=== PATIENT | female | born 1970 | race Caucasian/White ===

== ENCOUNTER 2021-11-22 12:39 | Emergency (ER) | payer MEDICARE, OTHER ==
--- NOTE | 2021-11-22 14:07 | RAD REPORT ---
EXAM DESCRIPTION: RAD - Knee Right 3 View - 11/22/2021 1:45 pm CLINICAL HISTORY: PAIN COMPARISON: No comparisons FINDINGS: No acute fracture. No malalignment. No significant focal degenerative changes. IMPRESSION: No acute osseous abnormality involving the right knee.
--- NOTE | 2021-11-22 14:10 | ER ---
Nurse's Notes [facility] Name: Isamar Morgan Age: 51 yrs Sex: Female : 1970 Arrival Date: 11/22/2021 Time: 12:41 Bed 19 Private MD: Diagnosis: Other specified arthritis, right knee-and right knee haskins cyst Presentation: 11/22 12:45 Chief complaint: Patient states: noticed a 'lump' behind Right knee this morning. vg1 States has hx of Right knee pain, denies any injuries or sx to knee. Coronavirus screen: Vaccine status: Patient reports being unvaccinated. Client denies travel out of the [place] in the last 14 days. Ebola Screen: Patient negative for fever greater than or equal to 101.5 degrees Fahrenheit, and additional compatible Ebola Virus Disease symptoms. Initial Sepsis Screen: Does the patient meet any 2 criteria? No. Patient's initial sepsis screen is negative. Does the patient have a suspected source of infection? No. Patient's initial sepsis screen is negative. Risk Assessment: Do you want to hurt yourself or someone else? Patient reports no desire to harm self or others. Onset of symptoms was November 22, 2021. 12:45 Method Of Arrival: Ambulatory vg1 12:45 Acuity: JENELLE 4 vg1 Triage Assessment: 12:47 General: Appears in no apparent distress. Behavior is calm, cooperative. Pain: vg1 Complains of pain in posterior aspect of right knee Pain currently is 4 out of 10 on a pain scale. 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 - Social history:: Smoking status: Patient reports the use of cigarette tobacco products, smokes one pack cigarettes per day. - Family history:: not pertinent. Screenin:11 Abuse screen: Denies threats or abuse. Denies injuries from another. Nutritional cb5 screening: No deficits noted. Tuberculosis screening: No symptoms or risk factors identified. 13:11 Fall Risk None identified. cb5 Assessment: 13:00 General: Appears in no apparent distress. distressed, comfortable, Behavior is calm, cb5 cooperative, appropriate for age. Pain: Complains of pain in right leg and posterior aspect of right knee Pain currently is 3 out of 10 on a pain scale. Neuro: No deficits noted. Level of Consciousness is awake, alert, obeys commands. Cardiovascular: No deficits noted. Respiratory: No deficits noted. GI: No deficits noted. : No deficits noted. EENT: No deficits noted. Derm: laceration to right hand. Musculoskeletal: No deficits noted. 14:27 Reassessment: No changes from previously documented assessment. cb5 Vital Signs: 12:45 BP 138 / 88; Pulse 71; Resp 16; Temp 97.9; Pulse Ox 100% ; Weight 81.65 kg; Height 5 vg1 ft. 5 in. (165.10 cm); Pain 4/10; 14:35 BP 133 / 74; Pulse 70; Resp 16; Temp 98.6; Pulse Ox 100% ; Pain 0/10; cb5 12:45 Body Mass Index 29.95 (81.65 kg, 165.10 cm) vg1 ED Course: 12:41 Patient arrived in ED. as 12:47 Triage completed. vg1 12:47 Arm band placed on. vg1 12:50 Rosaline Peters MD is Attending Physician. ma2 13:03 Kaitlynn Feliciano, RN is Primary Nurse. cb5 13:11 Call light in reach. Side rails up X 1. Side rails up X2. cb5 13:45 Knee Right 3 View XRAY In Process Unspecified. EDMS 14:53 No provider procedures requiring assistance completed. cb5 Administered Medications: No medications were administered Outcome: 14:09 Discharge ordered by . ma2 14:53 Discharged to home ambulatory. cb5 14:53 Condition: good 14:53 Discharge instructions given to patient. 14:54 Patient left the ED. cb5 Signatures: Dispatcher [employer] EDMS Cherry Guillory Mohammad, MD MD ma2 Susan Aburto, RN RN vg1 Kaitlynn Feliciano, RN RN cb5
--- NOTE | 2021-11-22 14:10 | EDPHYS ---
Physician Documentation [facility] Name: Isamar Morgan Age: 51 yrs Sex: Female : 1970 Arrival Date: 11/22/2021 Time: 12:41 Bed 19 Private MD: ED Physician Rosaline Peters HPI: 11/22 13:22 This 51 yrs old Female presents to ER via Ambulatory with complaints of Leg Pain - lump ma2 above calf. 13:22 51-year-old healthy female, presents with a lump behind right knee that is been ma2 constant for 2 days, painless. No trauma. Of note she had right knee pain and arthritis for a week. There is no right leg swelling, never had DVT before. No pain anywhere else. No fever. 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 - Social history:: Smoking status: Patient reports the use of cigarette tobacco products, smokes one pack cigarettes per day. - Family history:: not pertinent. ROS: 13:22 Constitutional: Negative for fever, chills, and weight loss. ma2 13:22 All other systems are negative. Exam: 13:22 Constitutional: This is a well developed, well nourished patient who is awake, alert, ma2 and in no acute distress. Head/Face: Normocephalic, atraumatic. Eyes: Pupils equal round and reactive to light, extra-ocular motions intact. Lids and lashes normal. Conjunctiva and sclera are non-icteric and not injected. Cornea within normal limits. Periorbital areas with no swelling, redness, or edema. ENT: Nares patent. No nasal discharge, no septal abnormalities noted. Tympanic membranes are normal and external auditory canals are clear. Oropharynx with no redness, swelling, or masses, exudates, or evidence of obstruction, uvula midline. Mucous membranes moist. Neck: Trachea midline, no thyromegaly or masses palpated, and no cervical lymphadenopathy. Supple, full range of motion without nuchal rigidity, or vertebral point tenderness. No Meningismus. Chest/axilla: Normal chest wall appearance and motion. Nontender with no deformity. No lesions are appreciated. Cardiovascular: Regular rate and rhythm with a normal S1 and S2. No gallops, murmurs, or rubs. Normal PMI, no JVD. No pulse deficits. Respiratory: Lungs have equal breath sounds bilaterally, clear to auscultation and percussion. No rales, rhonchi or wheezes noted. No increased work of breathing, no retractions or nasal flaring. Abdomen/GI: Soft, non-tender, with normal bowel sounds. No distension or tympany. No guarding or rebound. No evidence of tenderness throughout. Back: No spinal tenderness. No costovertebral tenderness. Full range of motion. Female : Normal external genitalia. Skin: Warm, dry with normal turgor. Normal color with no rashes, no lesions, and no evidence of cellulitis. MS/ Extremity: , However there is no redness or septic knee, on exam. Patient has right Yates's cyst, nontender no warmth or redness. Otherwise pulses are pulses equal, no cyanosis. Neurovascular intact. Full, normal range of motion. Neuro: Awake and alert, GCS 15, oriented to person, place, time, and situation. Cranial nerves II-XII grossly intact. Motor strength 5/5 in all extremities. Sensory grossly intact. Cerebellar exam normal. Normal gait. Vital Signs: 12:45 BP 138 / 88; Pulse 71; Resp 16; Temp 97.9; Pulse Ox 100% ; Weight 81.65 kg; Height 5 vg1 ft. 5 in. (165.10 cm); Pain 4/10; 14:35 BP 133 / 74; Pulse 70; Resp 16; Temp 98.6; Pulse Ox 100% ; Pain 0/10; cb5 12:45 Body Mass Index 29.95 (81.65 kg, 165.10 cm) vg1 MDM: 13:22 Differential diagnosis: dislocation, contusion, abrasion, tendonitis. Data reviewed: ma2 vital signs, nurses notes, EMS record. Counseling: I had a detailed discussion with the patient and/or guardian regarding: the historical points, exam findings, and any diagnostic results supporting the discharge/admit diagnosis, the presence of at least one elevated blood pressure reading (>120/80) during this emergency department visit, the need for outpatient follow up. Response to treatment: the patient's symptoms have markedly improved after treatment. ED course: To follow-up with orthopedic for right knee MRI, she does not want any prescription for steroid which I recommended given her right knee arthritis and new Yates's cyst.. 14:09 Patient medically screened. ma2 11/22 13:30 Order name: Knee Right 3 View XRAY; Complete Time: 14:09 ma2 Administered Medications: No medications were administered Disposition Summary: 11/22/21 14:09 Discharge Ordered Location: Home ma2 Condition: Stable ma2 Diagnosis - Other specified arthritis, right knee - and right knee yates cyst ma2 Followup: ma2 - With: Private Physician - When: Tomorrow - Reason: If symptoms return, Continuance of care Discharge Instructions: - Discharge Summary Sheet ma2 - Yates Cyst ma2 - Arthritis, [id number] ma2 Forms: - Medication Reconciliation Form ma2 - Thank You Letter ma2 - Antibiotic Education ma2 - Prescription Opioid Use ma2 Prescriptions: - KETOROLAC 10 mg - take 10 milligram by ORAL route 2-4 times daily; 20 milligram; Refills: 0, ma2 Product Selection Permitted Signatures: Dispatcher [employer] EDMS Rosaline Peters MD MD ma2 Susan Aburto RN RN vg1
[2021-11-22 15:16] VITALS: O2SAT 100
[2021-11-22 15:18] VITALS: BP 133/74; TEMP 98.6
== END 2021-11-22 14:54 | disposition home or self-care (01) ==
LOC: ER 12:39
DX: M71.21 Synovial cyst of popliteal space [Baker], right knee (principal); M13.861 Other specified arthritis, right knee; F17.210 Nicotine dependence, cigarettes, uncomplicated
CPT/HCPCS: 99283